=== PATIENT | male | born 2000 | race Caucasian/White ===

== ENCOUNTER 2024-05-17 09:01 | Emergency (ER) | payer MEDICAID ==
[~2024-05-17] VITALS: Ht 190.5 cm; Wt 74.8 kg
[2024-05-17 09:10] VITALS: BP 144/102; PULSE 84; RESP 18; TEMP 98.1; O2SAT 99
[2024-05-17] MEDS: KETOROLAC 60 MG/2 ML VIAL IM ONE (09:46)
[2024-05-17] MEDS ORDERED: TRAM-748 PO (10:35)
[2024-05-17 10:42] VITALS: BP 130/70; PULSE 88; RESP 18; TEMP 97.3; O2SAT 98
[2024-05-17] MEDS ORDERED: GABA300C PO (20:38)
== END 2024-05-17 10:42 | disposition home or self-care (01) ==
LOC: MED 09:01
DX: M79.652 Pain in left thigh (principal); M25.562 Pain in left knee; Z79.899 Other long term (current) drug therapy
CPT/HCPCS: 73552; 73590; 96372; 99284; J1885

== ENCOUNTER 2024-05-17 19:25 | Emergency (ER) | payer OTHER, MEDICAID ==
[~2024-05-17] VITALS: Ht 190.5 cm; Wt 74.8 kg
[~2024-05-17 19:25] MED LIST: TRAM-748 PO
[2024-05-17 19:58] VITALS: BP 132/90; PULSE 89; RESP 14; TEMP 98; O2SAT 95
[2024-05-17] MEDS ORDERED: GABA300C PO (20:38)
== END 2024-05-17 21:06 | disposition home or self-care (01) ==
LOC: MED 19:25
DX: M54.42 Lumbago with sciatica, left side (principal); M54.16 Radiculopathy, lumbar region; Z79.899 Other long term (current) drug therapy
CPT/HCPCS: 99283

== ENCOUNTER 2024-05-18 09:42 | Observation (INO) | payer MEDICAID, OTHER ==
[~2024-05-18] VITALS: Ht 190.5 cm; Wt 80.1 kg
[~2024-05-18 09:42] MED LIST changes: +GABA300C PO
[2024-05-18 10:00] VITALS: BP 130/86; PULSE 87; RESP 18; TEMP 98; O2SAT 98
[2024-05-18] MEDS: DEXT 5% /NACL 0.9% 1,000 ML IV ONE (11:10)
[2024-05-18 11:21] LABS: BASOPHILS % (AUTO) 0.5 % (0.0-2.0); EOSINOPHILS # (AUTO) 0.1 K/uL (0-0.4); EOSINOPHILS % (AUTO) 2.5 % (0.0-4.0); HEMATOCRIT 40.6 % (36-52); HEMOGLOBIN 13.4 g/dL (12.0-18.0); LYMPHOCYTES # (AUTO) 1.6 K/uL (2.0-11.5); LYMPHOCYTES % (AUTO) 28.5 % (20.5-51.1); MEAN CORPUSCULAR HEMOGLOBIN 30 pg (27-31); MEAN CORPUSCULAR HGB CONC 33 g/dL (33-37); MEAN CORPUSCULAR VOLUME 88.9 fL (80-94); MONOCYTES # (AUTO) 0.4 K/uL (0.8-1.0); MONOCYTES % (AUTO) 7.3 % (1.7-9.3); NEUTROPHILS # (AUTO) 3.4 K/uL (1.8-7.7); NEUTROPHILS % (AUTO) 61.2 % (42.2-75.2); PLATELET COUNT (AUTO) 248 K/uL (140-450); RED BLOOD CELL COUNT(AUTO) 4.56 MIL/uL (4.20-6.10); RED CELL DISTRIBUTION WIDTH 14.1 % (11.6-13.7); WHITE BLOOD COUNT (AUTO) 5.5 K/uL (4.8-10.8)
[2024-05-18 11:32] LABS: ANION GAP 8.8 (8-16); CALCIUM 9.4 mg/dL (8.5-10.1); POTASSIUM 3.8 mmol/L (3.5-5.1)
[2024-05-18 11:40] LABS: INR 2.26 (0.8-1.2); PROTHROMBIN TIME 22.8 secs (10.8-13.4)
[2024-05-18] MEDS ORDERED: HYDROcodone/APAP 5/325 MG 1 TAB TAB PO PRN (11:45)
[2024-05-18] MEDS ORDERED: MORPHINE SULFATE 2 MG/ML SYR IVP PRN (11:45)
[2024-05-18] MEDS ORDERED: ACETAMINOPHEN 325 MG TAB PO PRN (11:45)
[2024-05-18] MEDS ORDERED: ONDANSETRON 4 MG/2 ML VIAL IVP PRN (11:45)
[2024-05-18] MEDS: DEXT 5% /NACL 0.9% 1,000 ML IV SCH (11:45)
[2024-05-18 12:05] VITALS: BP 128/62; PULSE 88; RESP 16; TEMP 98; O2SAT 98
== END 2024-05-18 12:05 | disposition left against medical advice (07) ==
LOC: MED 09:42 → MMU 11:44
PROVIDERS: ADMIT Internal Medicine; ATTEND Internal Medicine
DX: S72.045A Nondisplaced fracture of base of neck of left femur, initial encounter for closed fracture (principal); Z79.899 Other long term (current) drug therapy; X58.XXXA Exposure to other specified factors, initial encounter; Y93.89 Activity, other specified; Y92.89 Other specified places as the place of occurrence of the external cause; Y99.8 Other external cause status
CPT/HCPCS: 36415; 72192; 80048; 85025; 85610; 86886; 86900; 86901; 96360; 99284; G0378